=== PATIENT | male | born 1960 | race Caucasian/White ===

== ENCOUNTER → 2021-06-16 13:26 | Outpatient (POV) | payer OTHER, SELFPAY | PROVIDERS: Visit Provider Internal Medicine Nephrology | DX: Z00.00 Encounter for general adult medical examination without abnormal findings (principal) ==

== ENCOUNTER → 2021-08-02 07:39 | Outpatient (CLI) | payer OTHER, SELFPAY ==
--- NOTE | 2021-08-02 07:47 | CA_ITS ---
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 (R) 36.6/8.8 cm/sec RI: 0.75 Segmental A. Sup (R) 36.6/8.8 cm/sec Segmental A. Mid (R) 18.7/5.5 cm/sec Segmental A. Inf (R) 20.9/5.5 cm/sec Origin (L) 87.6/ cm/sec Mid (L) 76.2/ cm/sec Distal (L) 83.8/ cm/sec Renal Aorta Ratio (L) 0.79 Segmental A. (L) 30.1/4.9 cm/sec RI: 0.83 Segmental A. Sup (L) 21.4/2.9 cm/sec Segmental A. Mid (L) 30.1/4.9 cm/sec Segmental A. Inf (L) 28.2/6.8 cm/sec Renal Measurements Kidney Size (R) 11.0x6.6 cm Cortical Thickness (R) 1.1 cm Kidney Size (L) 13.3x7.1 cm Cortical Thickness (L) 2.0 cm Findings Study suggests no evidence of stenosis of the bilateral renal arteries. Conclusion Study suggests no evidence of stenosis of the bilateral renal arteries. Electronically signed by : Esteban Salas MD 08/02/2021 16:38:12
--- NOTE | 2021-08-02 08:30 | US_ITS ---
PROCEDURE: US KIDNEY CLINICAL INDICATION: CHRONIC KIDNEY DISEASE COMPARISON: US CA RENAL ARTERY DUPLEX from 08/02/2021 FINDINGS: The right kidney is 13x5x6 cm. No hydronephrosis, cortical thinning, or renal mass or perinephric fluid collection is evident. The left kidney is 12x6x5 cm. No hydronephrosis, cortical thinning, or renal mass or perinephric fluid collection is evident. There are bilateral pleural effusions. IMPRESSION: Unremarkable bilateral renal ultrasound. Bilateral pleural effusions Dictated by: Esteban Salas MD 08/02/2021 16:48 Esteban Salas MD in [place] 08/02/2021 16:48
== END ==
PROVIDERS: PCP Internal Medicine Adolescent Medicine; Visit Provider Internal Medicine Nephrology
DX: N18.30 Chronic kidney disease, stage 3 unspecified (principal); I12.9 Hypertensive chronic kidney disease with stage 1 through stage 4 chronic kidney disease, or unspecified chronic kidney disease; E13.22 Other specified diabetes mellitus with diabetic chronic kidney disease
CPT/HCPCS: 76770; 93976

== ENCOUNTER → 2021-10-20 14:07 | Outpatient (POV) | payer OTHER, SELFPAY | PROVIDERS: Visit Provider Internal Medicine Nephrology | DX: Z00.00 Encounter for general adult medical examination without abnormal findings (principal) ==

== ENCOUNTER → 2021-10-27 14:26 | Outpatient (CLI) | payer OTHER, SELFPAY ==
--- NOTE | 2021-10-27 14:32 | CT_ITS ---
FINAL REPORT CLINICAL HISTORY: HX OF NICOTINE, QUIT SMOKING 9 YEARS AGO, SMOKED 1.5-2 PACKS A DAY WHEN PT DID SMOKE FINDINGS: Low-Dose Chest CT CTDI vol (mGy): 2.90 DLP (mGy-cm): 96.38 Axial images were obtained from the lung apex to the mid abdomen by computed tomography. Low-dose protocol was utilized. FINDINGS: CHEST: There is no axillary adenopathy. There is no hilar adenopathy. There are multiple borderline size mediastinal lymph nodes. There are postoperative changes from median sternotomy The heart is proper size. There is no pericardial or pleural effusion. Limited images of the upper abdomen are unremarkable. Lung window images demonstrate mild emphysema. There is mild scarring. There are several small nodules in both lungs. The largest is in the left upper lobe measuring 6 mm, well seen on image 29. There is a moderate right pleural effusion which is partially loculated anteriorly. There is a small to moderate left pleural effusion. There is mild bibasilar atelectasis. There is a calcified granuloma in the right lung base. IMPRESSION: Lung RADS category 3. Recommend 6 month follow-up low-dose chest CT. Reviewed, Interpreted and Dictated by Fredy Thornton III, MD Transcribed by Jackie Lewis Authenticated by Fredy Thornton III, MD on 10/27/2021 03:20:48 PM [facility]
== END ==
PROVIDERS: PCP Internal Medicine Adolescent Medicine; Visit Provider Internal Medicine Adolescent Medicine
DX: Z87.891 Personal history of nicotine dependence (principal); Z12.2 Encounter for screening for malignant neoplasm of respiratory organs
CPT/HCPCS: 71271

== ENCOUNTER → 2021-11-11 11:29 | Outpatient (CLI) | payer OTHER, SELFPAY | PROVIDERS: PCP Internal Medicine Adolescent Medicine; Visit Provider Surgery | DX: Z01.812 Encounter for preprocedural laboratory examination (principal); Z11.52 Encounter for screening for COVID-19; Z12.11 Encounter for screening for malignant neoplasm of colon; Z86.010 Personal history of colon polyps | CPT/HCPCS: C9803; U0003; U0005 ==

== ENCOUNTER 2021-11-14 08:25 | Day surgery (SDC) | payer OTHER, SELFPAY ==
[2021-11-10 14:10] VITALS: BMI 26.1
[2021-11-14 09:06] VITALS: BP 184/66; PULSE 64; RESP 16; TEMP 36.4; O2SAT 97
--- NOTE | 2021-11-14 09:06 | HMH.ANESCL ---
[facility] Anesthesia Checklist - Patient Identification Patient Identification: Arm Band - Structural Data Admitted From: Home Planned Operative Procedure/s: Colonoscopy Consent for Planned Operative Procedure(s) Verified: Yes - NPO Status Verified Time NPO: 05:00 (Prep) - Airway Assessment C-Spine Mobility Assessed: Yes TMJ Mobility Assessed: Yes Dentition: Edentulous (1 remaining tooth. Not loose) - Neurological Assessment Level of Consciousness: Awake Hx Seizures: No Numbness or tingling in extremities: No - Anesthesia Plan Anesthesia Risk discussed: Yes Anesthesia Plan: Verified ASA Class: III Anesthesia Type: MAC [facility] History I have reviewed the patient's past medical history: Yes Medical History: Reports:: Congestive Heart Failure, Cerebrovascular Accident, Diabetes Mellitus Type 2, Hypertension, Myocardial Infarction, Renal Insufficiency (CKD) Denies:: Cancer, Diabetes Mellitus Type 1, Internal Pacemaker, MRSA *Have you ever received a pneumonia vaccine?: Yes *Have you received a flu vaccine this season?: Yes Anesthesia experience/problems:: None Other Surgeries: Yes: CABG. No: Pacemaker Amputation: No Fractures: No - *Social History Smoking Status: Former smoker Alcohol Intake: never Substance Use Type: denies use *Occupational Status:: unemployed Housing: house *Travel in the last 8 weeks: None Family Hx:: No significant family history
[2021-11-14 09:26] VITALS: O2SAT 97
--- NOTE | 2021-11-14 09:26 | SUR.PREOP ---
PT. REPEAT FSBS 120
--- NOTE | 2021-11-14 10:20 | HMH.SCOPE ---
- Procedure: Date: 11/14/21 Patient Date of :: 1960 Procedure Performed:: Colonoscopy with polypectomy Indications:: Remote history of colon polyps Performing Provider:: Naseem Nguyen MD Referring Provider:: . Sedation:: Monitored anesthesia care Procedure:: After informed consent was obtained the patient was taken to the endoscopy suite. Sedation ensued after the patient was transferred to the left lateral decubitus position. Pulse, blood pressure, and oxygen saturation were monitored throughout the procedure. Digital rectal exam revealed no significant abnormality. The colonoscope was placed in position. The entire colon was evaluated. The colonoscope was carefully removed and the patient was transferred to recovery in stable condition. Please see findings and specimens below for detail. Findings:: Bowel preparation fairly poor Profound lack of relaxation Large complex pedunculated polyps Specimens:: Large lobulated partially-pedunculated cecal polyp Large pedunculated proximal transverse colon polyp Recommendations:: Timing of repeat colonoscopy is pending pathology but will likely be within 3-6 months with extended bowel preparation secondary to limitations in visualization and size/nature of polyps. Complications:: Limited visualization secondary to poor bowel preparation and profound lack of relaxation Estimated blood obtained (mL): 1
[2021-11-14 10:21] VITALS: BP 136/84; PULSE 64; RESP 16; TEMP 36.2; O2SAT 95
[2021-11-14 10:31] VITALS: BP 150/66; PULSE 66; RESP 16; O2SAT 97
[2021-11-14 10:41] VITALS: BP 155/78; PULSE 65; RESP 16; O2SAT 98
[2021-11-14 10:57] VITALS: BP 163/71; PULSE 66; RESP 16; O2SAT 97
[2022-05-24 10:58] LABS: POC Glucose,Bedside 120 (70-110)
[2022-05-24 10:58] LABS: POC Glucose,Bedside 53 (70-110)
== END 2021-11-14 10:57 | disposition home or self-care (01) ==
LOC: OUTP 08:26
PROVIDERS: PCP Internal Medicine Adolescent Medicine; Visit Provider Surgery
PROC: 0DJD8ZZ Inspection of Lower Intestinal Tract, Via Natural or Artificial Opening Endoscopic (ICD-10-PCS; CPT 45380; principal; 2021-11-14 09:30)
DX: Z12.11 Encounter for screening for malignant neoplasm of colon (principal); Z86.010 Personal history of colon polyps; K63.5 Polyp of colon; N18.9 Chronic kidney disease, unspecified; E11.9 Type 2 diabetes mellitus without complications; I11.0 Hypertensive heart disease with heart failure; I50.9 Heart failure, unspecified; I25.2 Old myocardial infarction; Z86.73 Personal history of transient ischemic attack (TIA), and cerebral infarction without residual deficits; Z87.891 Personal history of nicotine dependence; Z79.82 Long term (current) use of aspirin; Z79.899 Other long term (current) drug therapy; Z79.4 Long term (current) use of insulin
CPT/HCPCS: 45380; 82962

== ENCOUNTER → 2022-01-13 10:28 | Outpatient (CLI) | payer OTHER, SELFPAY ==
[2022-01-13 10:39] LABS: Microscopic, Urine URINE MICROSCOPIC (MICROSCOPIC)
[2022-01-13 11:07] LABS: Basophils % 1.2 % (0.1-2.0); Eosinophils # 0.1 K/mm3 (0.0-0.4); Eosinophils % 3.5 % (0.1-12.0); Hematocrit 25.2 % (42.0-52.0); Hemoglobin 8.1 g/dL (14.1-18.0); Lymphocytes # 1.3 K/mm3 (0.7-4.5); Lymphocytes % 36.2 % (10-50); Mean Corpuscular HGB Conc 32.2 g/dL (31.8-35.4); Mean Corpuscular Hemoglobin 31.5 pg (27.0-31.2); Mean Corpuscular Volume 97.9 fl (80-94); Mean Platelet Volume 8.3 fl (7.4-10.4); Monocytes # 0.2 K/mm3 (0.1-1.0); Monocytes % 6.6 % (1.7-9.3); Neutrophils # 1.9 K/mm3 (1.8-7.8); Neutrophils % 52.4 % (37.0-80.0); Platelet Count 193 K/mm3 (142-424); Red Blood Count 2.57 M/mm3 (4.60-6.20); Red Cell Distribution Width 15.9 % (11.5-17.5); White Blood Count 3.6 K/mm3 (4.8-10.8)
[2022-01-13 11:18] LABS: Hemoglobin A1C 6.3 % (4.0-6.0)
[2022-01-13 11:33] LABS: Alanine Aminotransferase 15 U/L (12-78); Albumin Level 2.9 g/dl (3.5-5.0); Albumin/Globulin Ratio 0.9 (1.1-1.8); Alkaline Phosphatase 87 U/L (38-126); Anion Gap 12.6 mEq/L (5-15); Aspartate Amino Transferase 18 U/L (17-59); Blood Urea Nitrogen 40 mg/dl (9-20); Calcium 8.4 mg/dl (8.4-10.2); Carbon Dioxide 21 mmol/L (22.0-30.0); Chloride 110 mmol/L (98-107); Estimated Glomerular Filt Rate 15 ml/min (>60); GFR (African American) 18 ML/MIN (>60); Globulin 3.4 g/dL (1.3-3.2); Glucose 114 mg/dl (74-100); Potassium 5.6 mmoL/L (3.5-5.1); Sodium 138 mmol/L (136-145); Total Protein,Serum 6.3 g/dl (6.3-8.2); Uric Acid 6.6 mg/dl (3.5-8.5)
[2022-01-13 11:43] LABS: 25-OH Vitamin D, Total 33.3 ng/mL (30-100)
[2022-01-13 11:44] LABS: Intact Parathyroid Hormone 106.8 pg/mL (7.5-53.5)
[2022-01-13 11:57] LABS: Creatinine,Urine Random 56 mg/dL (Not Estab.)
[2022-01-13 12:02] LABS: Prostate Specific Ag Screen 1.1 ng/ml (0.0-4.0)
[2022-01-13 13:34] LABS: Bilirubin,Total < 0.1 mg/dl (0.2-1.3)
[2022-01-13 16:27] LABS: Appearance,Urine CLEAR (Clear); Bilirubin,Urine Negative (Negative); Blood, Urine Negative (Negative); Color,Urine YELLOW (Yellow); Glucose,Urine (UA) TRACE (Negative); Ketones,Urine Negative (Negative); Leukocyte Esterase,Urine Negative (Negative); Nitrate,Urine Negative (Negative); Protein,Urine 2+ (Negative); Urobilinogen,Urine 0.2 EU/dl (0.2)
[2022-01-13 16:36] LABS: Bacteria,Urine 1+ /lpf; RBC,Urine Occasional #/hpf (0-3)
[2022-01-15 15:10] LABS: Complement C3 115 mg/dL (82-167)
[2022-01-20 19:49] LABS: Antinuclear Antibodies, IFA POSITIVE
== END ==
PROVIDERS: Visit Provider Internal Medicine Nephrology
DX: N18.32 Chronic kidney disease, stage 3b (principal); E13.22 Other specified diabetes mellitus with diabetic chronic kidney disease; I10 Essential (primary) hypertension; E78.5 Hyperlipidemia, unspecified; Z79.4 Long term (current) use of insulin
CPT/HCPCS: 36415; 80053; 81001; 82306; 82570; 83036; 83970; 84155; 84550; 85025; 86038; 86161; G0103

== ENCOUNTER → 2022-01-19 13:41 | Outpatient (POV) | payer OTHER, SELFPAY | PROVIDERS: Visit Provider Internal Medicine Nephrology | DX: Z00.00 Encounter for general adult medical examination without abnormal findings (principal) ==

== ENCOUNTER → 2022-01-19 14:53 | Outpatient (CLI) | payer OTHER, SELFPAY ==
--- NOTE | 2022-01-19 15:05 | US_ITS ---
FINAL REPORT TECHNIQUE: Ultrasound images of the kidneys and bladder were obtained. CLINICAL HISTORY: CHRONIC KIDNEY DISEASE, STAGE 3B. COMPARISON: 08/02/2021 FINDINGS: The right kidney measures 11.5 cm in length. There is increased echogenicity. There is no hydronephrosis. The left kidney measures 11.8 cm in length. There is increased echogenicity. There is no hydronephrosis. Bilateral pleural effusions are identified. The spleen measures 10.8 cm. IMPRESSION: Increased renal echogenicity bilaterally consistent with medical renal disease, stable from previous. Bilateral pleural effusions. Reviewed, Interpreted and Dictated by Charline Ravi MD Transcribed by Rere Mesa Authenticated by Charline Ravi MD on 01/19/2022 05:01:12 PM [facility]
== END ==
PROVIDERS: PCP Internal Medicine Adolescent Medicine; Visit Provider Internal Medicine Nephrology
DX: N18.32 Chronic kidney disease, stage 3b (principal); E13.22 Other specified diabetes mellitus with diabetic chronic kidney disease; I10 Essential (primary) hypertension; E78.5 Hyperlipidemia, unspecified
CPT/HCPCS: 76770

== ENCOUNTER → 2022-02-16 13:54 | Outpatient (POV) | payer OTHER, SELFPAY | PROVIDERS: Visit Provider Internal Medicine Nephrology | DX: Z00.00 Encounter for general adult medical examination without abnormal findings (principal) ==

== ENCOUNTER → 2022-03-10 10:52 | Outpatient (CLI) | payer OTHER, SELFPAY ==
[2022-03-10 11:02] LABS: Microscopic, Urine URINE MICROSCOPIC (MICROSCOPIC)
[2022-03-10 11:19] LABS: Basophils % 0.8 % (0.1-2.0); Eosinophils # 0.1 K/mm3 (0.0-0.4); Eosinophils % 2.1 % (0.1-12.0); Hematocrit 29.6 % (42.0-52.0); Hemoglobin 9.3 g/dL (14.1-18.0); Lymphocytes # 1.7 K/mm3 (0.7-4.5); Lymphocytes % 31.3 % (10-50); Mean Corpuscular HGB Conc 31.3 g/dL (31.8-35.4); Mean Corpuscular Hemoglobin 31.7 pg (27.0-31.2); Mean Corpuscular Volume 101.1 fl (80-94); Mean Platelet Volume 9.2 fl (7.4-10.4); Monocytes # 0.4 K/mm3 (0.1-1.0); Monocytes % 6.9 % (1.7-9.3); Neutrophils # 3.2 K/mm3 (1.8-7.8); Neutrophils % 58.9 % (37.0-80.0); Platelet Count 196 K/mm3 (142-424); Red Blood Count 2.93 M/mm3 (4.60-6.20); Red Cell Distribution Width 16.4 % (11.5-17.5); White Blood Count 5.4 K/mm3 (4.8-10.8)
[2022-03-10 11:23] LABS: Appearance,Urine SL CLOUDY (Clear); Bilirubin,Urine Negative (Negative); Blood, Urine Negative (Negative); Color,Urine YELLOW (Yellow); Glucose,Urine (UA) TRACE (Negative); Ketones,Urine Negative (Negative); Leukocyte Esterase,Urine Negative (Negative); Nitrate,Urine Negative (Negative); Protein,Urine 3+ (Negative); Specific Gravity, Urine >= 1.030 (1.005-1.030); Urobilinogen,Urine 0.2 EU/dl (0.2)
[2022-03-10 11:27] LABS: Creatinine,Urine Random 117 mg/dL (Not Estab.)
[2022-03-10 11:34] LABS: Bacteria,Urine Trace /lpf; Squamous Epithelial Cell,Urine Occasional #/hpf (0-5)
[2022-03-10 11:45] LABS: Hemoglobin A1C 6.1 % (4.0-6.0)
[2022-03-10 11:57] LABS: Alanine Aminotransferase 12 U/L (12-78); Albumin/Globulin Ratio 0.8 (1.1-1.8); Alkaline Phosphatase 108 U/L (38-126); Anion Gap 14.5 mEq/L (5-15); Aspartate Amino Transferase 23 U/L (17-59); Blood Urea Nitrogen 45 mg/dl (9-20); Calcium 8.6 mg/dl (8.4-10.2); Carbon Dioxide 18 mmol/L (22.0-30.0); Chloride 110 mmol/L (98-107); Estimated Glomerular Filt Rate 13 ml/min (>60); GFR (African American) 16 ML/MIN (>60); Globulin 3.7 g/dL (1.3-3.2); Glucose 132 mg/dl (74-100); Potassium 5.5 mmoL/L (3.5-5.1); Sodium 137 mmol/L (136-145); Total Protein,Serum 6.7 g/dl (6.3-8.2)
[2022-03-10 12:03] LABS: Intact Parathyroid Hormone 93.9 pg/mL (7.5-53.5)
[2022-03-10 12:36] LABS: Bilirubin,Total 0.1 mg/dl (0.2-1.3)
== END ==
PROVIDERS: PCP Internal Medicine Adolescent Medicine; Visit Provider Internal Medicine Nephrology
DX: N18.32 Chronic kidney disease, stage 3b (principal); E13.22 Other specified diabetes mellitus with diabetic chronic kidney disease; I12.9 Hypertensive chronic kidney disease with stage 1 through stage 4 chronic kidney disease, or unspecified chronic kidney disease; E78.5 Hyperlipidemia, unspecified; N17.9 Acute kidney failure, unspecified
CPT/HCPCS: 36415; 80053; 81001; 82043; 82306; 82570; 83036; 83970; 84155; 84550; 85025

== ENCOUNTER → 2022-03-16 14:05 | Outpatient (POV) | payer OTHER, SELFPAY | PROVIDERS: Visit Provider Internal Medicine Nephrology | DX: Z00.00 Encounter for general adult medical examination without abnormal findings (principal) ==

== ENCOUNTER → 2022-04-16 12:54 | Outpatient (CLI) | payer OTHER, SELFPAY ==
[2022-04-16 13:11] LABS: Microscopic, Urine URINE MICROSCOPIC (MICROSCOPIC)
[2022-04-16 13:38] LABS: Hematocrit 26.7 % (42.0-52.0); Hemoglobin 7.9 g/dL (14.1-18.0)
[2022-04-16 13:43] LABS: Appearance,Urine CLEAR (Clear); Bilirubin,Urine Negative (Negative); Blood, Urine Negative (Negative); Color,Urine YELLOW (Yellow); Glucose,Urine (UA) 1+ (Negative); Ketones,Urine Negative (Negative); Leukocyte Esterase,Urine Negative (Negative); Nitrate,Urine Negative (Negative); Protein,Urine 3+ (Negative); Urobilinogen,Urine 0.2 EU/dl (0.2)
[2022-04-16 13:54] LABS: Bacteria,Urine Trace /lpf; RBC,Urine Occasional #/hpf (0-3); Squamous Epithelial Cell,Urine Occasional #/hpf (0-5); WBC,Urine Occasional #/hpf (0-3)
[2022-04-16 14:55] LABS: Alanine Aminotransferase 19 U/L (12-78); Albumin Level 2.9 g/dl (3.5-5.0); Albumin/Globulin Ratio 0.9 (1.1-1.8); Alkaline Phosphatase 125 U/L (38-126); Anion Gap 12.6 mEq/L (5-15); Aspartate Amino Transferase 23 U/L (17-59); Blood Urea Nitrogen 35 mg/dl (9-20); Calcium 7.8 mg/dl (8.4-10.2); Carbon Dioxide 23 mmol/L (22.0-30.0); Chloride 108 mmol/L (98-107); Estimated Glomerular Filt Rate 15 ml/min (>60); GFR (African American) 19 ML/MIN (>60); Globulin 3.3 g/dL (1.3-3.2); Glucose 112 mg/dl (74-100); Potassium 4.6 mmoL/L (3.5-5.1); Sodium 139 mmol/L (136-145); Total Protein,Serum 6.2 g/dl (6.3-8.2)
[2022-04-16 15:50] LABS: Bilirubin,Total < 0.1 mg/dl (0.2-1.3)
== END ==
PROVIDERS: PCP Internal Medicine Adolescent Medicine; Visit Provider Internal Medicine Nephrology
DX: I12.9 Hypertensive chronic kidney disease with stage 1 through stage 4 chronic kidney disease, or unspecified chronic kidney disease (principal); N18.32 Chronic kidney disease, stage 3b; E13.22 Other specified diabetes mellitus with diabetic chronic kidney disease; E78.5 Hyperlipidemia, unspecified; N17.9 Acute kidney failure, unspecified; Z79.4 Long term (current) use of insulin
CPT/HCPCS: 36415; 80053; 81001; 85014; 85018

== ENCOUNTER → 2022-04-20 14:09 | Outpatient (POV) | payer OTHER, SELFPAY | PROVIDERS: Visit Provider Internal Medicine Nephrology | DX: Z00.00 Encounter for general adult medical examination without abnormal findings (principal) ==

== ENCOUNTER 2022-05-04 08:59 | Outpatient (CLI) | payer OTHER, SELFPAY ==
[2022-05-04] VITALS (20 sets, daily range): BP systolic 122–185; BP diastolic 46–81; PULSE 48–55; RESP 18–19; TEMP 35.6–35.7; O2SAT 98–100; BMI 28.0
[2022-05-04 09:39] LABS: Hematocrit 21.1 % (42.0-52.0)
[2022-05-04 09:44] LABS: Reticulocyte % (Auto) 3.1 % (0.9-3.2)
[2022-05-04 10:43] LABS: Iron 52 ug/dL (49-181)
[2022-05-04 10:52] LABS: Total Iron Binding Capacity 287 ug/dL (261-462)
[2022-05-04 11:24] LABS: Vitamin B12 564 pg/mL (239-931)
[2022-05-04 11:30] LABS: Ferritin 106 ng/ml (17.9-464)
[2022-05-04 12:02] LABS: Folate > 20.00 ng/mL
[2022-05-04 17:32] LABS: Hematocrit 29.3 % (42.0-52.0)
[2022-05-05 10:16] LABS: Transferrin 183 mg/dL (177-329)
== END 2022-05-04 17:25 | disposition home or self-care (01) ==
LOC: INF 09:00
PROVIDERS: PCP Internal Medicine Adolescent Medicine; Visit Provider Internal Medicine Nephrology
DX: D64.9 Anemia, unspecified (principal)
CPT/HCPCS: 36430; 82607; 82728; 82746; 83540; 83550; 84466; 85014; 85018; 85044; 86850; 96374; P9016

== ENCOUNTER → 2022-05-05 09:17 | Outpatient (CLI) | payer OTHER, SELFPAY ==
[2022-05-05 09:52] LABS: Hematocrit 28.1 % (42.0-52.0)
== END ==
PROVIDERS: PCP Internal Medicine Adolescent Medicine; Visit Provider Internal Medicine Adolescent Medicine
DX: D64.9 Anemia, unspecified (principal)
CPT/HCPCS: 36415; 85014; 85018

== ENCOUNTER 2022-05-07 09:26 | Outpatient (CLI) | payer OTHER, SELFPAY ==
[2022-05-07 10:09] VITALS: BP 160/74; PULSE 65; RESP 18; O2SAT 97
== END 2022-05-07 10:09 | disposition home or self-care (01) ==
LOC: INF 09:27
PROVIDERS: PCP Internal Medicine Adolescent Medicine; Visit Provider Internal Medicine Nephrology
DX: N18.32 Chronic kidney disease, stage 3b (principal); D63.8 Anemia in other chronic diseases classified elsewhere
CPT/HCPCS: 96372; J0885

== ENCOUNTER → 2022-05-07 11:26 | Outpatient (CLI) | payer OTHER, SELFPAY ==
[2022-05-10 12:18] LABS: Occult Blood,Stool Positive (Negative)
== END ==
PROVIDERS: PCP Family Medicine; Visit Provider Internal Medicine Nephrology
DX: K92.1 Melena (principal); Z12.11 Encounter for screening for malignant neoplasm of colon
CPT/HCPCS: 82272; G0328

== ENCOUNTER → 2022-05-10 11:16 | Outpatient (CLI) | payer OTHER, SELFPAY ==
[2022-05-10 12:18] LABS: Occult Blood,Stool Negative (Negative)
== END ==
PROVIDERS: PCP Internal Medicine Adolescent Medicine; Visit Provider Internal Medicine Nephrology
DX: N18.32 Chronic kidney disease, stage 3b (principal); D63.8 Anemia in other chronic diseases classified elsewhere
CPT/HCPCS: 82272; G0328

== ENCOUNTER 2022-05-21 09:02 | Outpatient (CLI) | payer OTHER, SELFPAY ==
[2022-05-21 09:07] VITALS: BMI 27.3
--- NOTE | 2022-05-21 09:11 | PC.NURSE ---
0911-collected labs via peripheral stick will wait on results for possible procrit injection.
[2022-05-21 09:18] LABS: Hematocrit 27.3 % (42.0-52.0); Hemoglobin 8.8 g/dL (14.1-18.0)
[2022-05-21 09:36] VITALS: BP 142/63; PULSE 60; RESP 18; O2SAT 100
== END 2022-05-21 09:36 | disposition home or self-care (01) ==
LOC: INF 09:02
PROVIDERS: PCP Internal Medicine Adolescent Medicine; Visit Provider Internal Medicine Nephrology
DX: N18.32 Chronic kidney disease, stage 3b (principal); D63.8 Anemia in other chronic diseases classified elsewhere
CPT/HCPCS: 85014; 85018; 96372; J0885

== ENCOUNTER → 2022-06-02 10:53 | Outpatient (CLI) | payer OTHER, SELFPAY | PROVIDERS: PCP Internal Medicine Adolescent Medicine; Visit Provider Surgery | DX: Z01.812 Encounter for preprocedural laboratory examination (principal); Z20.822 Contact with and (suspected) exposure to COVID-19; Z12.11 Encounter for screening for malignant neoplasm of colon; Z86.010 Personal history of colon polyps | CPT/HCPCS: C9803; U0003; U0005 ==

== ENCOUNTER 2022-06-04 09:38 | Outpatient (CLI) | payer OTHER, SELFPAY ==
[2022-06-04 09:42] VITALS: BMI 27.3
--- NOTE | 2022-06-04 09:45 | PC.NURSE ---
0945-collected labs via peripheral stick;will wait on results pt may need procrit injection if hgb<11
[2022-06-04 09:56] LABS: Hematocrit 26.2 % (42.0-52.0); Hemoglobin 8.6 g/dL (14.1-18.0)
[2022-06-04 10:36] VITALS: BP 102/41; PULSE 46; RESP 18; O2SAT 96
== END 2022-06-04 10:36 | disposition home or self-care (01) ==
PROVIDERS: PCP Internal Medicine Adolescent Medicine; Visit Provider Internal Medicine Nephrology
DX: N18.32 Chronic kidney disease, stage 3b (principal); D63.1 Anemia in chronic kidney disease
CPT/HCPCS: 85014; 85018; 96372; J0885

== ENCOUNTER 2022-06-05 07:06 | Day surgery (SDC) | payer OTHER, SELFPAY ==
[2022-05-31 11:51] VITALS: BMI 26.6
[2022-06-05 07:47] VITALS: BP 174/61; PULSE 57; RESP 22; TEMP 36.1; O2SAT 100
[2022-06-05 08:08] LABS: POC Glucose,Bedside 150 (70-110)
--- NOTE | 2022-06-05 08:14 | P.PN_ITS ---
[facility] Medical History Anxiety Arthritis CHF (congestive heart failure) Chronic kidney disease Depression Diabetes mellitus, type 2 Dialysis patient Edema Hyperlipidemia Hypertension Irritable bowel syndrome (IBS) Kidney stone Renal disease Surgical History H/O colonoscopy Hx of CABG Family History Other Diabetes Heart disease Social History Smoking Status: Former smoker alcohol intake: never substance use type: denies use current occupational status: disabled Travel in the last 8 weeks: None household members: spouse housing: house marital status: service: No longterm: No current occupational exposures/hazards: No caffeine: Yes [facility] Anesthesia Checklist Patient Identification Patient Identification: Arm Band and Verbal (Name & ) Structural Data Admitted From: Home Planned Operative Procedure/s: Colonoscopy Consent for Planned Operative Procedure(s) Verified: Yes Verified Documents: Surgical Consent NPO Status Verified Time NPO: 03:30 Airway Assessment C-Spine Mobility Assessed: Yes TMJ Mobility Assessed: Yes Dentition: Poor Dentition Neurological Assessment Level of Consciousness: Awake, Alert and Appropriate Anesthesia Plan Anesthesia Risk discussed: Yes ASA Class: III Anesthesia Type: MAC
[2022-06-05 09:02] VITALS: O2SAT 97
[2022-06-05 09:53] VITALS: BP 136/94; PULSE 59; RESP 18; TEMP 36.2; O2SAT 99
--- NOTE | 2022-06-05 09:53 | P.PCN_ITS ---
Procedure: Date: 06/05/22 Patient Date of :: 1960 Procedure Performed:: Colonoscopy with polypectomy Indications:: History of colon polyps. Colonoscopy in October of this year was complicated by fairly poor bowel preparation and lack of relaxation. Large polyps of the cecum and transverse colon were excised. Of note, the patient has also been diagnosed with fairly significant anemia. His last hemoglobin was 8.6 and this was stable. Performing Provider:: Naseem Nguyen MD Referring Provider:: . Sedation:: Monitored anesthesia care Procedure:: After informed consent was obtained the patient was taken to the endoscopy suite. Sedation ensued after the patient was transferred to the left lateral decubitus position. Pulse, blood pressure, and oxygen saturation were monitored throughout the procedure. Digital rectal exam revealed no significant abnormality. The colonoscope was placed in position. The entire colon was evaluated. The colonoscope was carefully removed and the patient was tr ansferred to recovery in stable condition. Please see findings and specimens below for detail. Findings:: Bowel preparation fair to moderate (improved versus prior evaluation) Severe sigmoid tortuosity and spasticity Scattered diverticulosis Hemorrhoidal cushions Polyps (see specimens) Hyperplastic-appearing polyps within rectum/sigmoid Specimens:: Cecal polyp (cold biopsy forceps) Transverse colon polyp (cold snare) Recommendations:: Timing of repeat colonoscopy is pending pathology will likely be between 1-2 years Further evaluation with regard to diagnosis of anemia to be discussed (possible EGD, possible UGI/SBFT, possible capsule endoscopy, etc.) Complications:: No immediate Estimated blood obtained (mL): 1
[2022-06-05 10:03] VITALS: BP 101/60; PULSE 60; RESP 16; O2SAT 99
[2022-06-05 10:13] VITALS: BP 127/54; PULSE 63; RESP 16; O2SAT 99
[2022-06-05 10:23] VITALS: BP 151/74; PULSE 61; RESP 16; TEMP 36.2; O2SAT 99
== END 2022-06-05 10:26 | disposition home or self-care (01) ==
PROVIDERS: PCP Internal Medicine Adolescent Medicine; Visit Provider Surgery
PROC: 0DJD8ZZ Inspection of Lower Intestinal Tract, Via Natural or Artificial Opening Endoscopic (ICD-10-PCS; CPT 45380; principal; 2022-06-05 08:30)
DX: K63.5 Polyp of colon (principal); Z86.010 Personal history of colon polyps; Z79.899 Other long term (current) drug therapy; D64.9 Anemia, unspecified; E11.9 Type 2 diabetes mellitus without complications
CPT/HCPCS: 45380; 45385; 82962

== ENCOUNTER → 2022-06-07 12:02 | Outpatient (CLI) | payer OTHER, SELFPAY ==
[2022-06-07 12:13] LABS: Microscopic, Urine URINE MICROSCOPIC (MICROSCOPIC)
[2022-06-07 12:31] LABS: Appearance,Urine CLEAR (Clear); Bilirubin,Urine Negative (Negative); Blood, Urine Negative (Negative); Color,Urine YELLOW (Yellow); Glucose,Urine (UA) TRACE (Negative); Ketones,Urine Negative (Negative); Leukocyte Esterase,Urine Negative (Negative); Nitrate,Urine Negative (Negative); Protein,Urine 3+ (Negative); Specific Gravity, Urine 1.015 (1.005-1.030); Urobilinogen,Urine 0.2 EU/dl (0.2)
[2022-06-07 12:33] LABS: Hematocrit 28.5 % (42.0-52.0); Mean Corpuscular HGB Conc 31.5 g/dL (31.8-35.4); Mean Corpuscular Hemoglobin 29.5 pg (27.0-31.2); Mean Corpuscular Volume 93.9 fl (80-94); Platelet Count 264 K/mm3 (142-424); Red Blood Count 3.03 M/mm3 (4.60-6.20); Red Cell Distribution Width 17.1 % (11.5-17.5); White Blood Count 5.9 K/mm3 (4.8-10.8)
[2022-06-07 12:38] LABS: Bacteria,Urine Trace /lpf; WBC,Urine Occasional #/hpf (0-3)
[2022-06-07 12:45] LABS: Creatinine,Urine Random 55 mg/dL (Not Estab.)
[2022-06-07 12:58] LABS: Hemoglobin A1C 6.3 % (4.0-6.0)
[2022-06-07 13:08] LABS: Alanine Aminotransferase 23 U/L (12-78); Albumin Level 2.8 g/dl (3.5-5.0); Albumin/Globulin Ratio 0.8 (1.1-1.8); Alkaline Phosphatase 170 U/L (38-126); Anion Gap 10.5 mEq/L (5-15); Aspartate Amino Transferase 23 U/L (17-59); Bilirubin,Total 0.3 mg/dl (0.2-1.3); Blood Urea Nitrogen 33 mg/dl (9-20); Calcium 8.6 mg/dl (8.4-10.2); Carbon Dioxide 27 mmol/L (22.0-30.0); Chloride 105 mmol/L (98-107); Estimated Glomerular Filt Rate 16 ml/min (>60); GFR (African American) 20 ML/MIN (>60); Globulin 3.7 g/dL (1.3-3.2); Glucose 53 mg/dl (74-100); Potassium 4.5 mmoL/L (3.5-5.1); Sodium 138 mmol/L (136-145); Total Protein,Serum 6.5 g/dl (6.3-8.2); Uric Acid 7.2 mg/dl (3.5-8.5)
[2022-06-07 13:19] LABS: Intact Parathyroid Hormone 59.2 pg/mL (7.5-53.5)
[2022-06-07 13:25] LABS: 25-OH Vitamin D, Total 34.5 ng/mL (30-100)
== END ==
PROVIDERS: PCP Internal Medicine Adolescent Medicine; Visit Provider Internal Medicine Nephrology
DX: N18.5 Chronic kidney disease, stage 5 (principal); D63.1 Anemia in chronic kidney disease; E87.29 Other acidosis; E11.22 Type 2 diabetes mellitus with diabetic chronic kidney disease; I10 Essential (primary) hypertension; Z79.4 Long term (current) use of insulin
CPT/HCPCS: 36415; 80053; 81001; 82306; 82570; 83036; 83970; 84155; 84550; 85014; 85018; 85048; 85049

== ENCOUNTER 2022-06-18 09:04 | Outpatient (CLI) | payer OTHER, SELFPAY ==
[2022-06-18 09:11] VITALS: BMI 27.0
--- NOTE | 2022-06-18 09:29 | PC.NURSE ---
pt here today for labs and procrit injection if needed. accessed pt rt arm via butterfly needle and obtained blood for h/h-specimen sent to lab fo analysis, will await results to determine poc.
[2022-06-18 09:30] LABS: Hematocrit 25.5 % (42.0-52.0)
[2022-06-18 10:05] VITALS: BP 123/57; PULSE 58; RESP 18; TEMP 36.6; O2SAT 98
== END 2022-06-18 10:22 | disposition home or self-care (01) ==
LOC: INF 09:04
PROVIDERS: PCP Internal Medicine Adolescent Medicine; Visit Provider Internal Medicine Nephrology
DX: N18.32 Chronic kidney disease, stage 3b (principal); D63.8 Anemia in other chronic diseases classified elsewhere
CPT/HCPCS: 85014; 85018; 96372; J0885

== ENCOUNTER → 2022-06-22 15:21 | Outpatient (POV) | payer OTHER, SELFPAY | PROVIDERS: Visit Provider Internal Medicine Nephrology | DX: Z00.00 Encounter for general adult medical examination without abnormal findings (principal) ==

== ENCOUNTER → 2022-06-22 16:44 | Outpatient (CLI) | payer OTHER, SELFPAY ==
[2022-06-22] VITALS (11 sets, daily range): BP systolic 152–186; BP diastolic 45–72; PULSE 53–63; RESP 16–20; TEMP 36.4–36.9; O2SAT 98–99; BMI 27.0
[2022-06-22 22:34] LABS: Hematocrit 29.9 % (42.0-52.0); Hemoglobin 9.5 g/dL (14.1-18.0)
== END ==
PROVIDERS: PCP Internal Medicine Adolescent Medicine; Visit Provider Internal Medicine Nephrology
DX: N18.32 Chronic kidney disease, stage 3b (principal); D63.1 Anemia in chronic kidney disease
CPT/HCPCS: 36415; 85014; 85018; 86850; P9016

== ENCOUNTER 2022-07-05 11:51 | Outpatient (CLI) | payer OTHER, SELFPAY ==
[2022-07-05 12:03] VITALS: BMI 27.3
--- NOTE | 2022-07-05 12:08 | PC.NURSE ---
1208-collected labs via peripheral stick;will wait on labs for possible procrit injection if hgb<11
[2022-07-05 12:24] LABS: Basophils % 0.4 % (0.1-2.0); Eosinophils # 0.1 K/mm3 (0.0-0.4); Eosinophils % 2.4 % (0.1-12.0); Hematocrit 27.9 % (42.0-52.0); Hemoglobin 8.6 g/dL (14.1-18.0); Lymphocytes # 0.9 K/mm3 (0.7-4.5); Lymphocytes % 14.4 % (10-50); Mean Corpuscular HGB Conc 30.8 g/dL (31.8-35.4); Mean Corpuscular Volume 94.3 fl (80-94); Monocytes # 0.3 K/mm3 (0.1-1.0); Monocytes % 5.4 % (1.7-9.3); Neutrophils # 4.6 K/mm3 (1.8-7.8); Neutrophils % 77.3 % (37.0-80.0); Platelet Count 305 K/mm3 (142-424); Red Blood Count 2.96 M/mm3 (4.60-6.20); Red Cell Distribution Width 17.4 % (11.5-17.5); White Blood Count 5.9 K/mm3 (4.8-10.8)
[2022-07-05 12:38] VITALS: BP 126/67; PULSE 54; RESP 18; O2SAT 98
[2022-07-05 12:39] LABS: Alanine Aminotransferase 15 U/L (12-78); Albumin Level 2.9 g/dl (3.5-5.0); Albumin/Globulin Ratio 0.7 (1.1-1.8); Alkaline Phosphatase 162 U/L (38-126); Aspartate Amino Transferase 20 U/L (17-59); Bilirubin,Total 0.5 mg/dl (0.2-1.3); Blood Urea Nitrogen 36 mg/dl (9-20); Calcium 8.5 mg/dl (8.4-10.2); Carbon Dioxide 26 mmol/L (22.0-30.0); Chloride 102 mmol/L (98-107); Creatinine Clearance Estimated 25 mL/min (50-200); Estimated Glomerular Filt Rate 16 ml/min (>60); GFR (African American) 20 ML/MIN (>60); Globulin 3.9 g/dL (1.3-3.2); Glucose 200 mg/dl (74-100); Sodium 137 mmol/L (136-145); Total Protein,Serum 6.8 g/dl (6.3-8.2)
== END 2022-07-05 12:38 | disposition home or self-care (01) ==
LOC: INF 11:51
PROVIDERS: PCP Internal Medicine Adolescent Medicine; Visit Provider Internal Medicine Nephrology
DX: N18.32 Chronic kidney disease, stage 3b (principal); D63.8 Anemia in other chronic diseases classified elsewhere
CPT/HCPCS: 80053; 85025; 96372; J0885

== ENCOUNTER 2022-07-17 10:41 | Outpatient (CLI) | payer OTHER, SELFPAY ==
[2022-07-17 10:32] VITALS: BP 137/48; PULSE 58; RESP 18; O2SAT 95
[2022-07-17 10:46] VITALS: BMI 27.3
--- NOTE | 2022-07-17 10:52 | PC.NURSE ---
1052-collected labs via peripheral stick;if hgb<11 pt to receive procrit 20,000 units
[2022-07-17 11:00] LABS: Hematocrit 26.8 % (42.0-52.0); Hemoglobin 8.3 g/dL (14.1-18.0)
== END 2022-07-17 11:32 | disposition home or self-care (01) ==
LOC: INF 10:41
PROVIDERS: PCP Nurse Practitioner Family; Visit Provider Internal Medicine Nephrology
DX: N18.9 Chronic kidney disease, unspecified (principal); D63.1 Anemia in chronic kidney disease
CPT/HCPCS: 85014; 85018; 96372; J0885

== ENCOUNTER 2022-08-01 10:36 | Outpatient (CLI) | payer OTHER, SELFPAY ==
[2022-08-01 10:44] VITALS: BMI 27.3
--- NOTE | 2022-08-01 11:02 | PC.NURSE ---
venipuncture performed using butterfly needle to pt's rt fa, blood obtained for labs as ordered and specimen sent to lab for analysis. will await results to determine poc
[2022-08-01 11:05] LABS: Hematocrit 23.6 % (42.0-52.0); Hemoglobin 7.4 g/dL (14.1-18.0)
[2022-08-01 11:40] VITALS: BP 130/53; PULSE 59; RESP 18; TEMP 36.2; O2SAT 97
[2022-08-01 11:59] LABS: Ferritin 336 ng/ml (17.9-464)
[2022-08-02 18:09] LABS: Transferrin 127 mg/dL (177-329)
== END 2022-08-01 11:52 | disposition home or self-care (01) ==
LOC: INF 10:37
PROVIDERS: PCP Nurse Practitioner Family; Visit Provider Internal Medicine Nephrology
DX: N18.9 Chronic kidney disease, unspecified (principal); D63.1 Anemia in chronic kidney disease
CPT/HCPCS: 36415; 82728; 84466; 85014; 85018; 86850; 96372; J0885

== ENCOUNTER 2022-08-02 08:55 | Outpatient (CLI) | payer OTHER, SELFPAY ==
[2022-08-02] VITALS (19 sets, daily range): BP systolic 131–159; BP diastolic 48–61; PULSE 51–61; RESP 20; TEMP 36.1–36.2; O2SAT 94–95
== END 2022-08-02 15:05 | disposition home or self-care (01) ==
LOC: INF 08:55
PROVIDERS: PCP Internal Medicine Adolescent Medicine; Visit Provider Internal Medicine Nephrology
DX: D64.9 Anemia, unspecified (principal)
CPT/HCPCS: 36430; 96375; P9016

== ENCOUNTER 2022-08-14 11:54 | Outpatient (CLI) | payer OTHER, SELFPAY ==
[2022-08-14 12:02] VITALS: BMI 26.6
--- NOTE | 2022-08-14 12:09 | PC.NURSE ---
1209-collected labs via peripheral stick;will wait on labs.
[2022-08-14 12:34] LABS: Hematocrit 27.3 % (42.0-52.0); Hemoglobin 8.7 g/dL (14.1-18.0)
[2022-08-14 13:10] VITALS: BP 128/54; PULSE 56; RESP 18; O2SAT 96
== END 2022-08-14 13:10 | disposition home or self-care (01) ==
LOC: INF 11:55
PROVIDERS: PCP Physician Assistant; Visit Provider Internal Medicine Nephrology
DX: N18.32 Chronic kidney disease, stage 3b (principal); D63.1 Anemia in chronic kidney disease
CPT/HCPCS: 85014; 85018; 96372; J0885

== ENCOUNTER → 2022-08-30 09:38 | Outpatient (CLI) | payer OTHER, SELFPAY ==
--- NOTE | 2022-08-30 09:40 | CA_ITS ---
APPROVED REPORT EXAM: Comprehensive 2D, Doppler, and color-flow Echocardiogram Test Car Driver: Nancy Seth RVT Ht: 5 ft 9 in Wt: 180lbs BSA: 1.98 BP: 159/54 mmHg Indications: SOA,CABG,RBBB,MURMUR,SMOKER,HTN,EDEMA 2D Dimensions LVOT 2.39 cm (M/F) 1.5-2.5 LA Volume 63.40 mL LA Volume Index 32.02 mL/m2 (M/F) 16-34 M-Mode Dimensions RVDd 2.54 cm (0.9-2.6) LA Diam 3.81 cm (1.9-4.0) LVDd 5.71 cm (3.5-5.7) Ao Diam 3.45 cm (2.0-3.7) LVDs 3.66 cm (3.5-5.7) IVSd 1.65 cm (0.6-1.1) PWd 1.05 cm (0.6-1.1) EF (Teich) 64.80% FS 35.90% EDV (Teich) 160.70 mL TAPSE 2.26 (<1.7) ESV (Teich) 56.60 mL LV Diastology E Decel Time 237.00 (160-240 msec) E/A Ratio 1.1 MED E' 5.70 (< 7 cm/sec) E'/MED E' Ratio 21.58 (>14) LAT E' 6.40 (<10 cm/sec) E/LAT E' Ratio 19.22 (>14) Aortic Valve LVOT Max 79.00 (70-110 cm/s) LVOT VTI 19.36 cm AoV Peak Emir. 239.00 (50-130 cm/s) AI PHT 639.00 ms AO Peak GR. 22.90 mmHg AO Mean GR. 13.10 (<5 mmHg) AO VTI 58.98 (18-25 cm) SACHIN (VTI) 1.47 (2.5-4.5 cm2) Mitral Valve MV E Max Emir. 123.00 (40-130 cm/s) MV A Velocity 108.00 (40-130 cm/s) E/A Ratio 1.14 MV Decel. Time 237.00 (160-240 ms) MV PHT 69.00 ms Pulmonary Valve PV Peak Velocity 97.00 (50-150 cm/s) Tricuspid Valve TR P. Velocity 254.00 cm/s RAP Estimate 10.00 mmHg RVSP 35.70 mmHg Left Ventricle Left atrium is mildly enlarged, left ventricle is normal size mild concentric left ventricular hypertrophy, estimated ejection fraction 50%, there is marked hypokinesis involving the basal septum and inferior basal wall. Grade 2 diastolic dysfunction seen with tissue Doppler evidence of raise left atrial pressure. Right Ventricle Right atrium and right ventricle are mildly enlarged with normal contractility. Aortic Valve Thickened and calcified aortic valve mean gradient across aortic valve is 30 mmHg, valve area is 1.5 cm???, represents mild aortic stenosis, there is mild aortic insufficiency. Mitral Valve Mitral valve leaflets are minimally thickened, there is mild mitral regurgitation. Tricuspid Valve Tricuspid valve grossly normal, there is mild tricuspid regurgitation, calculated right ventricular systolic pressure is 36 mmHg. Pulmonic Valve Pulmonic valve is poorly visualized. Great Vessels Aortic root is normal size. Inferior vena cava is poorly visualized. Pericardium No significant pericardial effusion noted. Conclusion 1. Mild biatrial enlargement, normal left ventricular size, estimated ejection fraction 50% with segmental wall motion abnormality described above, grade 2 diastolic dysfunction seen with tissue Doppler evidence of raise left atrial pressure. 2. Mildly enlarged right ventricle with normal contractility. 3. Mild aortic stenosis with mild aortic insufficiency. 4. Mild mitral and tricuspid regurgitation. 5. No significant pericardial effusion. 6. Inferior vena cava is poorly visualized. Electronically signed by : Ephraim Joiner MD 08/31/2022 15:33:45
== END ==
PROVIDERS: PCP Physician Assistant; Visit Provider Nurse Practitioner Family
DX: R06.02 Shortness of breath (principal)
CPT/HCPCS: 93306

== ENCOUNTER 2022-08-31 09:56 | Outpatient (CLI) | payer OTHER, SELFPAY ==
[2022-08-31 10:05] VITALS: BMI 27.3
--- NOTE | 2022-08-31 10:09 | PC.NURSE ---
1009-collected labs via peripheral stick will wait on results
[2022-08-31 11:01] VITALS: BP 114/46; PULSE 56; RESP 18; TEMP 36.3; O2SAT 97
== END 2022-08-31 11:01 | disposition home or self-care (01) ==
LOC: INF 09:57
PROVIDERS: PCP Nurse Practitioner Family; Visit Provider Internal Medicine Nephrology
DX: N18.32 Chronic kidney disease, stage 3b (principal); D63.1 Anemia in chronic kidney disease
CPT/HCPCS: 36415; 85014; 85018; J0885

== ENCOUNTER 2022-09-14 10:16 | Outpatient (CLI) | payer OTHER, SELFPAY ==
[2022-09-14 10:22] VITALS: BMI 27.3
[2022-09-14 10:53] LABS: Basophils % 0.2 % (0.1-2.0); Eosinophils # 0.1 K/mm3 (0.0-0.4); Eosinophils % 1.6 % (0.1-12.0); Hematocrit 27.4 % (42.0-52.0); Hemoglobin 8.7 g/dL (14.1-18.0); Lymphocytes # 1.3 K/mm3 (0.7-4.5); Lymphocytes % 25.1 % (10-50); Mean Corpuscular HGB Conc 31.6 g/dL (31.8-35.4); Mean Corpuscular Volume 91.6 fl (80-94); Mean Platelet Volume 8.1 fl (7.4-10.4); Monocytes # 0.3 K/mm3 (0.1-1.0); Monocytes % 5.7 % (1.7-9.3); Neutrophils # 3.4 K/mm3 (1.8-7.8); Neutrophils % 67.4 % (37.0-80.0); Platelet Count 305 K/mm3 (142-424); Red Blood Count 2.99 M/mm3 (4.60-6.20)
[2022-09-14 11:05] LABS: Alanine Aminotransferase 23 U/L (12-78); Albumin/Globulin Ratio 0.7 (1.1-1.8); Alkaline Phosphatase 131 U/L (38-126); Anion Gap 9.9 mEq/L (5-15); Aspartate Amino Transferase 24 U/L (17-59); Bilirubin,Total 0.6 mg/dl (0.2-1.3); Blood Urea Nitrogen 39 mg/dl (9-20); Calcium 8.6 mg/dl (8.4-10.2); Carbon Dioxide 27 mmol/L (22.0-30.0); Chloride 109 mmol/L (98-107); Creatinine Clearance Estimated 22 mL/min (50-200); Estimated Glomerular Filt Rate 15 ml/min (>60); GFR (African American) 18 ML/MIN (>60); Globulin 4.3 g/dL (1.3-3.2); Glucose 109 mg/dl (74-100); Potassium 4.9 mmoL/L (3.5-5.1); Sodium 141 mmol/L (136-145); Total Protein,Serum 7.3 g/dl (6.3-8.2); Uric Acid 6.5 mg/dl (3.5-8.5)
[2022-09-14 11:17] LABS: Intact Parathyroid Hormone 56.2 pg/mL (7.5-53.5)
[2022-09-14 11:22] LABS: 25-OH Vitamin D, Total 38.1 ng/mL (30-100)
[2022-09-14 11:25] VITALS: BP 113/59; PULSE 83; RESP 18; O2SAT 93
[2022-09-14 11:31] LABS: Hemoglobin A1C 6.1 % (4.0-6.0)
== END 2022-09-14 11:30 | disposition home or self-care (01) ==
LOC: INF 10:16
PROVIDERS: PCP Internal Medicine Adolescent Medicine; Visit Provider Internal Medicine Nephrology
DX: N18.5 Chronic kidney disease, stage 5 (principal); D63.1 Anemia in chronic kidney disease; I10 Essential (primary) hypertension; E87.20 Acidosis, unspecified; E11.22 Type 2 diabetes mellitus with diabetic chronic kidney disease; Z79.4 Long term (current) use of insulin
CPT/HCPCS: 80053; 82306; 82565; 83036; 83970; 84550; 85025; 96372; J0885

== ENCOUNTER → 2022-09-15 10:32 | Outpatient (CLI) | payer OTHER, SELFPAY ==
[2022-09-15 10:39] LABS: Microscopic, Urine URINE MICROSCOPIC (MICROSCOPIC)
[2022-09-15 10:50] LABS: Appearance,Urine SL CLOUDY (Clear); Bilirubin,Urine Negative (Negative); Blood, Urine TRACE-I (Negative); Color,Urine YELLOW (Yellow); Glucose,Urine (UA) TRACE (Negative); Ketones,Urine Negative (Negative); Leukocyte Esterase,Urine 1+ (Negative); Nitrate,Urine Negative (Negative); Protein,Urine 2+ (Negative); Urobilinogen,Urine 0.2 EU/dl (0.2)
[2022-09-15 11:05] LABS: Bacteria,Urine 1+ /lpf; Renal Epithelial Cells,Urine Occasional #/lpf (0)
== END ==
PROVIDERS: PCP Internal Medicine Adolescent Medicine; Visit Provider Internal Medicine Nephrology
DX: N18.5 Chronic kidney disease, stage 5 (principal); N39.0 Urinary tract infection, site not specified; B96.89 Other specified bacterial agents as the cause of diseases classified elsewhere
CPT/HCPCS: 81001; 87086; 87088; 87186

== ENCOUNTER → 2022-09-20 09:03 | Outpatient (CLI) | payer OTHER, SELFPAY ==
--- NOTE | 2022-09-20 09:07 | XR_ITS ---
FINAL REPORT CLINICAL HISTORY: shortness of breath COMPARISON: none FINDINGS: Two views of the chest show moderate atelectasis. The upper lobes are clear. Pulmonary vascularity is normal. Heart and mediastinum are unremarkable. There are moderate-sized bilateral pleural effusions. IMPRESSION: Bilateral pleural effusions, probably related to mild CHF. Reviewed, Interpreted and Dictated by Delio Aparicio MD Transcribed by Gogo Snyder Authenticated and [facility]
== END ==
PROVIDERS: PCP Internal Medicine Adolescent Medicine; Visit Provider Physician Assistant
DX: R06.09 Other forms of dyspnea (principal); I25.10 Atherosclerotic heart disease of native coronary artery without angina pectoris; I50.9 Heart failure, unspecified; I10 Essential (primary) hypertension; E78.5 Hyperlipidemia, unspecified; N18.9 Chronic kidney disease, unspecified; R60.9 Edema, unspecified; R94.31 Abnormal electrocardiogram [ECG] [EKG]; Z86.73 Personal history of transient ischemic attack (TIA), and cerebral infarction without residual deficits; Z95.1 Presence of aortocoronary bypass graft
CPT/HCPCS: 71046

== ENCOUNTER 2022-09-27 10:14 | Emergency (ER) | payer OTHER, SELFPAY ==
[2022-09-27 10:14] VITALS: BP 130/54; PULSE 58; RESP 20; TEMP 36.6; O2SAT 95; BMI 24.8
[2022-09-27 10:26] VITALS: BP 130/54; PULSE 59; RESP 21; O2SAT 94
--- NOTE | 2022-09-27 10:35 | XR_ITS ---
FINAL REPORT CLINICAL HISTORY: SHORTNESS OF BREATH COMPARISON: 09/20/2022 FINDINGS: TWO-VIEW CHEST There is cardiomegaly. The patient is status post median sternotomy. There are persistent bibasilar opacities, may represent atelectasis or pneumonia. There are moderate effusions. Findings are stable since previous. There is no pneumothorax. IMPRESSION: Stable appearance of the chest. Reviewed, Interpreted and Dictated by Fredy Thornton III, MD Transcribed by Rere Mesa Authenticated and [facility]
--- NOTE | 2022-09-27 10:39 | ECG_ITS ---
APPROVED REPORT Exam: Resting ECG HR:56 bpm ECG Measurements Heart Rate 56 AXES NM 206 P 123 QRSd 125 QRS -28 QT 491 T 58 QTc 482 Conclusion SINUS BRADYCARDIA BORDERLINE LEFT AXIS DEVIATION [QRS AXIS < -20] MODERATE INTRAVENTRICULAR CONDUCTION DELAY [110+ ms QRS DURATION] NONSPECIFIC ST & T-WAVE ABNORMALITY PROLONGED QT INTERVAL ABNORMAL ECG UNCONFIRMED REPORT Electronically signed by : Jr Milian MD 09/27/2022 21:49:54
[2022-09-27 11:00] VITALS: BP 127/54; PULSE 57; RESP 22; O2SAT 94
--- NOTE | 2022-09-27 11:06 | HMH.EDGENADL ---
Discharge Plan Disposition Patient Disposition: Home, Self-Care Condition: Fair Prescriptions Prescriptions: No Action carvedilol 25 mg tablet 25 mg PO DAILY Rx Instructions: must administer with a meal/food omeprazole 40 mg capsule,delayed release(DR/EC) 40 mg PO DAILY isosorbide dinitrate 30 mg tablet 30 mg PO TID Label Comments: TAKE 1 TABLET BY MOUTH THREE TIMES DAILY sodium bicarbonate 650 mg tablet 1,300 mg PO BID Label Comments: TAKE 1 TABLET BY MOUTH THREE TIMES DAILY ferrous sulfate [iron] 325 mg (65 mg iron) tablet 325 mg PO DAILY Complete MV Adult 50 Plus 0.4 mg-300 mcg- 250 mcg tablet 1 tab PO DAILY omega-3 fatty acids 1,000 mg capsule 500 mg PO DAILY atorvastatin 80 MG tablet 80 mg PO HS spironolactone 25 MG tablet 25 mg PO DAILY citalopram 20 MG tablet 20 mg PO DAILY tamsulosin 0.4 MG capsule 0.4 mg PO DAILY furosemide 20 MG tablet 20 mg PO DAILY insulin glargine 100 UNIT/ML insulin pen 40 units SQ DAILY Label Comments: INJECT 30 UNITS SUBCUTANEOUSLY ONCE DAILY gabapentin 300 mg capsule 300 mg PO TID hydralazine 100 mg tablet 100 mg PO BID Referrals Follow up/Referrals: Jr Milian MD [Primary Care Provider] - See instructions Activity Restrictions/Add. Instructions Additional Instructions/Restrictions: Begin taking Lasix (furosemide) 40 mg twice a day, first dose this evening. Outpatient chemistry profile at [facility] lab Saturday and follow-up with Dr. Milian in the office on Saturday after that. Clinical Impressions Clinical Impression: Bilateral pleural effusion, Chronic kidney disease, Diastolic dysfunction Instructions Patient Instructions: DI for Heart Failure, DI for Pleural Effusion Discharge ED Provider: Jeramy Ramirez General Adult HPI General Chief complaint: Shortness of Breath/Dyspnea Stated complaint: SOA Time Seen by Provider: 09/27/22 11:08 Mode of Arrival: Wheelchair Limitations: No Limitations Description of Symptoms (Recalled from ER Triage Doc. by RN): PT REPORTS INCREASED SHORTNESS OF BREATH X 1 MONTH, PT DENIES COUGH. NO EDEMA. STATES DR. GANN SENT HIM FOR CXR AND INCREASED LASIX X 3 DAYS. PT REPORTS NO IMPROVEMENT History of Present Illness HPI narrative: ThisPatient complains of dyspnea on exertion for 1 month. Denies chest pain. Paroxysmal nocturnal dyspnea or orthopnea but chronically sleeps in a recliner. Seen in the cardiology office a week ago. Sent for chest x-ray and was told that he had a lot of fluid around his lungs. Diuretics were increased. Lasix was increased from 20 mg daily to 40 mg daily and Aldactone from 25 mg daily to 50 mg daily. He is not improved. Called Dr. Gann's office today and was advised to come to the emergency department. He is a former smoker. He says they never decided whether he has COPD, but does not carry that diagnosis. He has chronic kidney disease. He is not on dialysis, but has a fistula in his left arm in preparation for dialysis if he ever elects to start dialysis. Related Data Home Medications Medication Instructions Recorded Confirmed atorvastatin 80 mg tablet 80 mg PO HS hld 11/10/21 09/27/22 citalopram 20 mg tablet 20 mg PO DAILY mood 11/10/21 09/27/22 furosemide 20 mg tablet 20 mg PO DAILY Fluid 11/10/21 09/27/22 insulin glargine 100 unit/mL (3 40 units SQ DAILY Diabetes 11/10/21 09/27/22 mL) subcutaneous pen spironolactone 25 mg tablet 25 mg PO DAILY Fluid 11/10/21 09/27/22 tamsulosin 0.4 mg capsule 0.4 mg PO DAILY prostate 11/10/21 09/27/22 carvedilol 25 mg tablet 25 mg PO DAILY blood pressure 06/27/22 09/27/22 ferrous sulfate 325 mg (65 mg 325 mg PO DAILY iron 06/27/22 09/27/22 iron) tablet (iron) gabapentin 300 mg capsule 300 mg PO TID Pain 06/27/22 09/27/22 hydralazine 100 mg tablet 100 mg PO BID Anxiety 06/27/22 09/27/22 isosorbide dinitrate 30 mg
[2022-09-27 11:07] LABS: Chloride 107 mmol/L (98-107); Sodium 141 mmol/L (136-145)
[2022-09-27 11:08] LABS: Potassium 4.6 mmoL/L (3.5-5.1)
[2022-09-27 11:10] LABS: Alanine Aminotransferase 21 U/L (12-78); Alkaline Phosphatase 128 U/L (38-126); Aspartate Amino Transferase 25 U/L (17-59); Bilirubin,Total 0.5 mg/dl (0.2-1.3); Blood Urea Nitrogen 43 mg/dl (9-20); Creatinine Clearance Estimated 21 mL/min (50-200); Estimated Glomerular Filt Rate 15 ml/min (>60); GFR (African American) 18 ML/MIN (>60)
[2022-09-27 11:11] LABS: Albumin Level 2.9 g/dl (3.5-5.0); Albumin/Globulin Ratio 0.7 (1.1-1.8); Anion Gap 8.6 mEq/L (5-15); Calcium 8.1 mg/dl (8.4-10.2); Carbon Dioxide 30 mmol/L (22.0-30.0); Globulin 4.3 g/dL (1.3-3.2); Glucose 142 mg/dl (74-100); Total Protein,Serum 7.2 g/dl (6.3-8.2)
--- NOTE | 2022-09-27 11:13 | PC.NURSE ---
DR METZ AT BEDSIDE
[2022-09-27 11:15] LABS: Basophils % 0.5 % (0.1-2.0); Eosinophils # 0.1 K/mm3 (0.0-0.4); Hematocrit 29.5 % (42.0-52.0); Hemoglobin 9.2 g/dL (14.1-18.0); Lymphocytes # 1.3 K/mm3 (0.7-4.5); Lymphocytes % 24.4 % (10-50); Mean Corpuscular HGB Conc 31.1 g/dL (31.8-35.4); Mean Corpuscular Hemoglobin 29.4 pg (27.0-31.2); Mean Corpuscular Volume 94.4 fl (80-94); Monocytes # 0.4 K/mm3 (0.1-1.0); Monocytes % 8.1 % (1.7-9.3); Neutrophils # 3.4 K/mm3 (1.8-7.8); Platelet Count 298 K/mm3 (142-424); Red Blood Count 3.13 M/mm3 (4.60-6.20); Red Cell Distribution Width 19.9 % (11.5-17.5); White Blood Count 5.2 K/mm3 (4.8-10.8)
[2022-09-27 11:17] LABS: NT Pro Brain Natriuretic Pep. 2630 pg/mL (0-125)
[2022-09-27 11:23] LABS: Troponin I 0.04 ng/ml (0.00-0.034)
--- NOTE | 2022-09-27 11:24 | PC.NURSE ---
1124 XR AT THIS TIME
--- NOTE | 2022-09-27 11:40 | PC.NURSE ---
ROUNDED ON PT AT THIS TIME, FAMILY AT BEDSIDE. WARM BLANKET PROVIDED
[2022-09-27 12:01] VITALS: BP 137/57; PULSE 60; RESP 18; O2SAT 97
[2022-09-27 12:30] VITALS: BP 136/60; PULSE 54; RESP 16; O2SAT 97
--- NOTE | 2022-09-27 12:33 | PC.NURSE ---
ROUNDED ON PT AT THIS TIME, RESTING WITH EYES CLOSED. NO NEEDS AT THIS TIME. FAMILY AT BEDSIDE
--- NOTE | 2022-09-27 13:19 | PC.NURSE ---
CARDIOLOGY AT BEDSIDE
--- NOTE | 2022-09-27 13:26 | PC.NURSE ---
ana Nguyen in with patient.
--- NOTE | 2022-09-27 13:32 | PC.NURSE ---
dr remi navarro
--- NOTE | 2022-09-27 13:38 | PC.NURSE ---
NEW MED ORDERS FROM [facility] AND DR METZ IS SPEAKING TO DR LONGORIA
--- NOTE | 2022-09-27 13:43 | PC.NURSE ---
DR METZ SPOKE WITH DR LONGORIA HE GAVE NEW MED ORDERS AND PT IS GONNA BE D/C'D AND FOLLOW UP WITH HIM IN THE OFFICE
--- NOTE | 2022-09-27 13:55 | EXP.CARD.CON ---
History of Present Illness History of Present Illness Consult date: 09/27/22 Requesting physician: Jeramy Ramirez Consult reason: shortness of breath Chief complaint: SOA, pleural effusions, CKD stage 5 Additional Medical History:: 1. CKD, stage 5 A. AV fistula in left arm 2. Hypertension 3. Bilateral pleural effusions 4. Hypertension A. Echocardiogram 08/2022, EF 50% with marked hypokinesis of the basal septum and inferior basal wall, grade 2 diastolic dysfunction and mild aortic stenosis 5. CAD with history of CABG in 2014 6. History of CVA with left-sided residual deficits 7. Ex-smoker 8. Diabetes mellitus 9. Hyperlipidemia 10. Abnormal EKG with incomplete right bundle branch block possible RV hypertrophy and inferior ST-T abnormalities History of present illness: 62-year-old white male presented to the emergency department for worsening shortness of breath despite increased diuretic therapy transiently last week. Patient is unable to ambulate more than a couple feet without being short of breath chest x-ray last 3 revealed moderate bilateral pleural effusions which are persistent today but not worse by chest x-ray. Patient's creatinine is unchanged in the 4 range with GFR 15 and elevated BNP at 2900. Discussion undertaken with the patient regarding need for dialysis which he is not ready to proceed with. Additional option of IV diuresis and overnight hospital stay versus increasing home medications and discharge home was discussed. [facility] Disclaimer: The information contained in this section may have been updated after the patient was seen, as this information can be updated by other users. Medical History (Updated 09/27/22 @ 14:05 by KATLYN Alfredo) Anxiety Arthritis CHF (congestive heart failure) Chronic kidney disease Coronary artery disease Depression Diabetes mellitus, type 2 Dialysis patient Edema Hyperlipidemia Hypertension Irritable bowel syndrome (IBS) Kidney stone Renal disease Surgical History H/O colonoscopy Hx of CABG Family History Other Diabetes Heart disease Social History Smoking Status: Former smoker alcohol intake: never substance use type: denies use current occupational status: disabled Travel in the last 8 weeks: None household members: spouse housing: house marital status: service: No shelter: No current occupational exposures/hazards: No caffeine: Yes Review of Systems Review of Systems Review of systems:: pertinent systems reviewed and negative unless documented below Constitutional Constitutional: Denies headache(s) and Denies weakness ENT Ears, Nose, Mouth, and Throat: Denies headache(s) *Cardiovascular Cardiovascular: Denies chest pain, Reports dyspnea and Reports dyspnea on exertion *Respiratory Respiratory: Reports dyspnea and Reports dyspnea on exertion *Musculoskeletal Musculoskeletal: Denies numbness *Neurologic Neurologic: Denies headache(s), Denies numbness and Denies weakness Exam Data for Last 24 hours Vital signs and Labs for Last 24 Hours: Temp Pulse Resp BP Pulse Ox 97.9 F 54 L 16 136/60 97 09/27/22 10:14 09/27/22 12:30 09/27/22 12:30 09/27/22 12:30 09/27/22 12:30 Laboratory Results - last 24 hr 09/27/22 10:45: WBC 5.2, RBC 3.13 L, Hgb 9.2 L, Hct 29.5 L, MCV 94.4 H, MCH 29.4, MCHC 31.1 L, RDW 19.9 H, Plt Count 298, MPV 8.0, Neut % (Auto) 65.0, Lymph % (Auto) 24.4, [place] % (Auto) 8.1, Eos % (Auto) 2.0, Baso % (Auto) 0.5, Neut # (Auto) 3.4, Lymph # (Auto) 1.3, [place] # (Auto) 0.4, Eos # (Auto) 0.1, Baso # (Auto) 0.0 09/27/22 10:45: Sodium 141, Potassium 4.6, Chloride 107, Carbon Dioxide 30, Anion Gap 8.6, BUN 43 H, Creatinine 4.10 H, Estimated Creat Clear 21, Estimated GFR 15 L*, Est GFR ( Amer) 18 L*, Glucose 142 H, Calcium
[2022-09-27 14:15] VITALS: BP 152/64; PULSE 59; RESP 18; TEMP 36.8; O2SAT 96
== END 2022-09-27 14:18 | disposition home or self-care (01) ==
PROVIDERS: Emergency Provider Emergency Medicine; PCP Internal Medicine Adolescent Medicine
DX: J90 Pleural effusion, not elsewhere classified (principal); I51.89 Other ill-defined heart diseases; N18.5 Chronic kidney disease, stage 5; E13.69 Other specified diabetes mellitus with other specified complication; I25.10 Atherosclerotic heart disease of native coronary artery without angina pectoris; E78.5 Hyperlipidemia, unspecified; Z87.891 Personal history of nicotine dependence; R94.31 Abnormal electrocardiogram [ECG] [EKG]
CPT/HCPCS: 71046; 80053; 83880; 84484; 85025; 93005; 96374; 96375; 99285